=== PATIENT | male | born 1970 | race Caucasian/White ===

== ENCOUNTER 2019-06-24 18:16 | Inpatient (IN) | payer OTHER ==
[~2019-06-24] VITALS: Ht 172.7 cm; Wt 79.8 kg
[~2019-06-24 18:16] MED LIST: NOHOMEMEDICATIONS
[2019-06-24 18:24] VITALS: BP 172/122
--- NOTE | 2019-06-24 18:28 | NUR ---
DR. STAPLETON NOTED OF PT HR AND B/P.
[2019-06-24 19:13] LABS: ABSOLUTE EOSINOPHILS 0.1 thou/uL (0.0-0.7); ABSOLUTE LYMPHOCYTES 1.2 thou/uL (0.8-5.3); ABSOLUTE MONOCYTES 0.4 thou/uL (0.0-1.2); ABSOLUTE NEUTROPHILS 2.6 thou/uL (1.6-8.1); BASOPHILS 0.9 %; EOSINOPHILS 1.8 %; HEMATOCRIT 43.2 % (42.0-52.0); HEMOGLOBIN 14.8 gm/dL (14.0-18.0); LYMPHOCYTES 27.9 %; MCH 32.3 pg (26.0-34.0); MCHC 34.2 g/dL (28.0-37.0); MCV 94.4 fL (80.0-100.0); MONOCYTES 9.2 %; NUCLEATED RBCS 0 /100WBC; PLATELET COUNT* 159 thou/uL (150-400); POLYS 60.2 %; RBC 4.57 mil/uL (4.50-6.00); RDW-CV 14.1 % (10.5-14.5); WBC 4.3 thou/uL (4.0-11.0)
[2019-06-24 19:18] LABS: URINE BLOOD 3+ (Negative); URINE CLARITY CLEAR; URINE COLOR YELLOW; URINE GLUCOSE-RANDOM 3+ (Negative); URINE KETONES 1+ (Negative); URINE LEUKOCYTES-REFLEX NEGATIVE (Negative); URINE NITRITE-REFLEX NEGATIVE (Negative); URINE PROTEIN 2+ (Negative)
[2019-06-24 19:27] LABS: ANION GAP 12 mmol/L (7-16); BUN 10 mg/dL (7-18); CALCIUM 8.3 mg/dL (8.5-10.1); CHLORIDE 92 mmol/L (98-107); CO2 24 mmol/L (21-32); CREATININE 0.9 mg/dL (0.6-1.3); GLUCOSE 438 mg/dL (70-99); POTASSIUM 3.1 mmol/L (3.5-5.1); SODIUM 128 mmol/L (136-145)
[2019-06-24 19:29] LABS: BACTERIA-REFLEX 1-9 Few /HPF (None Seen); HYALINE CASTS 0-3 Few /LPF (None Seen); ICTOTEST (BILI CONFIRMATORY) Negative (Negative); SQUAMOUS 4-10 Moderate /LPF (0-3); URINE BILIRUBIN 2+ (Negative); URINE RBC 3-10 Few /HPF (0-2); URINE WBC-REFLEX 0-5 Rare /HPF (0-5)
[2019-06-24 19:30] LABS: CRYSTALS None Seen /LPF (None Seen)
[2019-06-24 19:40] LABS: AMP/METHAMP Negative (Negative); BARBITURATES Negative (Negative); BENZODIAZEPINES Negative (Negative); COCAINE Negative (Negative); METHADONE Negative (Negative); OPIATES Negative (Negative); PCP Negative (Negative); THC Negative (Negative)
[2019-06-24 19:41] LABS: ALBUMIN 2.6 g/dL (3.4-5.0); ALKALINE PHOSPHATASE 245 U/L (46-116); LIPASE 96 U/L (73-393); NT-PRO BRAIN NAT PEPTIDE 538 pg/mL (<300); SGOT 147 U/L (15-37); SGPT 87 U/L (30-65); TOTAL BILIRUBIN 2.5 mg/dL (<0.1-1.0); TOTAL PROTEIN 7.1 g/dL (6.4-8.2); TROPONIN-I LEVEL <0.06 ng/mL (<0.06)
[2019-06-24 22:30] VITALS: BP 155/102
[2019-06-24 22:45] VITALS: BP 150/109
[2019-06-24 23:55] LABS: PROTIME 10.7 Seconds (9.20-11.50)
[2019-06-24 23:57] LABS: PHOSPHORUS* 1.9 mg/dL (2.5-4.9)
[2019-06-24 23:58] LABS: CALCIUM 8.2 mg/dL (8.5-10.1); CREATININE 0.9 mg/dL (0.6-1.3); MAGNESIUM 1.3 mg/dL (1.8-2.4)
[2019-06-24 23:59] LABS: POTASSIUM 2.9 mmol/L (3.5-5.1)
[2019-06-25 04:00] VITALS: BP 161/98
--- NOTE | 2019-06-25 04:01 | NUR ---
ASSUMED CARE OF PT AT 2230. PT IS ALERT AND ORIENTED. VSS. PERRLA. PT IS UP AD MIRTA. PT IS ON ROOM AIR. BLOOD SUGAR WAS 75 UPON ARRIVAL TO THE FLOOR. PT IS IN SINUS RYTHM ON THE TELEMETRY. PT IS RESTING COMFORTABLY IN BED. RESPIRATIONS ARE EVEN AND NONLABORED. WILL CONTINUE TO MONITOR PT.
[2019-06-25 08:00] VITALS: BP 149/101
[2019-06-25 09:50] LABS: CALCIUM 8.6 mg/dL (8.5-10.1); POTASSIUM 3.8 mmol/L (3.5-5.1)
--- NOTE | 2019-06-25 14:39 | NUR ---
assumed pt care. report received from nurse. pt is aox4 , ciwa 1. mild anxity noticed early this am. vss. accucheck monitored see chart. iv fluid infusing as ordered. magnesium replaced. pt took a shower. pt found to be unsteady on legs, and stumbling. so fall precaution in place. pt has no complaint. has good appetite. oral ativan given as ordered. pt is lethargic and falls sleep at repeated intervals. will continue to monitor
[2019-06-25 16:49] VITALS: BP 146/96
--- NOTE | 2019-06-25 17:24 | NUR ---
SW met with pt dtr to complete initial assessment while pt was sleeping soundly. Pt lives at home with pt dtr. Pt dtr explained that she plans to assist pt in trying to enroll in insurance and find PCP and help pt with needed follow ups, etc. SW to continue to follow to assist with safe dc planning.
[2019-06-25 19:50] VITALS: BP 150/100
--- NOTE | 2019-06-25 20:08 | EKG ---
[place] [address] ELECTROCARDIOGRAM REPORT Name: GREGALVA III Room: [address] ADM IN [facility].#: [id number] Admission: 06/24/19 Attend Phys: Kimmie Tan MD Discharge: Date of : 74 Report #: [id number] THIS REPORT FOR: //name// [facility] ED Test Date: 2019-06-24 Test Time: 18:34:33 Pat Name: ALVA GARZA Department: Room: [facility] Gender: [employer] Dec[employer]ator: : 1970 Requested By: Beni Whitten Order Number: [id number] MD: Jack Lopez Measurements Intervals [place] Rate: 102 P: 69 HI: 153 QRS: -8 QRSD: 86 T: 40 QT: 360 QTc: 469 Interpretive Statements Sinus tachycardia Abnormal R-wave progression, late transition Baseline wander in lead(s) V5 Compared to ECG 12/17/2011 12:42:12 Sinus rhythm no longer present Electronically Signed On 06-25-2019 20:08:32 CDT by Jack Lopez [email or web address] <ELECTRONICALLY SIGNED> By: Bella Lopez MD, [facility] 06/25/192007 33 33 Bella Lopez MD, [facility] /EPI
[2019-06-26] VITALS (7 sets, daily range): BP systolic 144–178; BP diastolic 87–122
[2019-06-26 03:07] LABS: HEPATITIS B SURFACE AG Negative (Negative)
[2019-06-26 05:10] LABS: GLYCOHEMOGLOBIN (HGB A1C) 8.7 % (4.8-5.6)
--- NOTE | 2019-06-26 08:45 | NUR ---
ASSUMED CARE AFTER REPORT APPROX 0730. OX4, SLEEPY BUT RESPONDS TO VERBAL CUE. 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 O2 SATS >92% RA. CIWA 5, ATIVAN GIVEN PER JAN. PT STATES "I'M JUST NOT SURE WHAT'S GOING TO HAPPEN HERE." REVIEWED PLAN OF CARE. PATIENT STATES, "OK, THANKS." CALL LIGHT IN REACH. HOURLY ROUNDING FOR SAFETY AND PATIENT NEEDS.
[2019-06-26 14:36] LABS: HEMATOCRIT 34.6 % (42.0-52.0); MCH 32.9 pg (26.0-34.0); MCHC 34.4 g/dL (28.0-37.0); MCV 95.6 fL (80.0-100.0); MPV 10.3 fl. (7.2-11.1); RBC 3.62 mil/uL (4.50-6.00); RDW-CV 14.2 % (10.5-14.5); WBC 6.1 thou/uL (4.0-11.0)
[2019-06-26 14:38] LABS: HEMOGLOBIN 11.9 gm/dL (14.0-18.0)
[2019-06-26 14:46] LABS: CALCIUM 8.9 mg/dL (8.5-10.1); CREATININE 0.9 mg/dL (0.6-1.3); POTASSIUM 3.6 mmol/L (3.5-5.1)
[2019-06-27] VITALS (7 sets, daily range): BP systolic 144–175; BP diastolic 88–113
[2019-06-27 05:32] LABS: MCH 32.1 pg (26.0-34.0); MCHC 33.3 g/dL (28.0-37.0); MCV 96.5 fL (80.0-100.0); MPV 10.8 fl. (7.2-11.1); RBC 3.74 mil/uL (4.50-6.00); RDW-CV 14.5 % (10.5-14.5); WBC 3.8 thou/uL (4.0-11.0)
[2019-06-27 05:43] LABS: ALBUMIN 2.2 g/dL (3.4-5.0); CALCIUM 8.6 mg/dL (8.5-10.1); CREATININE 0.8 mg/dL (0.6-1.3); MAGNESIUM 1.3 mg/dL (1.8-2.4); POTASSIUM 3.4 mmol/L (3.5-5.1); TOTAL BILIRUBIN 0.4 mg/dL (<0.1-1.0); TOTAL PROTEIN 6.2 g/dL (6.4-8.2)
--- NOTE | 2019-06-27 08:30 | NUR ---
ASSUMED CARE AFTER REPORT APPROX 0730. PATIENT SLEEPING AT FIRST ENCOUNTER. RESPONDS TO VERBAL CUE. VS OBTAINED AND ASSESSMENT COMPLETE. 0X4, AWAKENS SLOW BUT MORE ALERT TODAY ONCE AWAKE. 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 O2 SAT >92% RA. GOAL SET TO BE UP IN CHAIR TODAY, PATIENT AGREES. PREFERS TO WALK TO BR BUT DOESN'T WANT TO BOTHER STAFF. PATIENT STATES "THAT'S WHY I DON'T WANT TO DRINK TOO MUCH WATER." EDUCATION PROVIDED R/T FLUID INTAKE AND HEALTH PROMOTION. CALL LIGHT WITHIN REACH. HOURLY ROUNDING FOR SAFETY AND PATIENT NEEDS.
--- NOTE | 2019-06-27 09:15 | NUR ---
PATIENT EATING BREAKFAST, C/O SHAKINESS THAT IS DIFFERENT FROM ANXIETY/TREMOR. BLOOD GLUCOSE CHECKED AND IS 76. APPLE JUICE GIVEN AND ENCOURAGED TO DRINK. UPON REASSESSMENT, PATIENT ASLEEP. RESPONDING TO TO VERBAL CUE, PATIENT STATES, "IT'S BETTER NOW, EVEN ANXIETY IS ABOUT A 1 OUT OF 10." CALL LIGHT IN REACH.
--- NOTE | 2019-06-27 11:15 | NUR ---
PATIENT UP TO BATHROOM. GAIT MORE STEADY TODAY. CONTINUES TO BE FALL RISK UNSTEADY AT FIRST. UP TO CHAIR. CALL LIGHT IN REACH.
--- NOTE | 2019-06-27 13:38 | NUR ---
PATIENT STATES "I AM SEEING SOME PURPLE AND CRUZ SHAPES OVER NEAR THE WINDOW. WINDOW SHADES CLOSED AT PRESENT. PATIENT ALSO REPORTS SEEING THESE COLORFUL SHAPES EARLY WHEN NURSE WAS IN THE ROOM. SEE CIWA CHARTING. CALL LIGHT IN REACH. HOURLY ROUNDING FOR SAFETY AND PATIENT NEEDS.
[2019-06-28] VITALS: BP 150/104
[2019-06-28 04:00] VITALS: BP 170/110
[2019-06-28 04:53] LABS: HEMATOCRIT 35.5 % (42.0-52.0); HEMOGLOBIN 11.8 gm/dL (14.0-18.0); MCH 32.4 pg (26.0-34.0); MCHC 33.3 g/dL (28.0-37.0); MCV 97.1 fL (80.0-100.0); MPV 10.2 fl. (7.2-11.1); RBC 3.65 mil/uL (4.50-6.00); RDW-CV 14.5 % (10.5-14.5); WBC 6.3 thou/uL (4.0-11.0)
[2019-06-28 05:07] LABS: ALBUMIN 2.3 g/dL (3.4-5.0); CALCIUM 8.7 mg/dL (8.5-10.1); CREATININE 0.8 mg/dL (0.6-1.3); MAGNESIUM 1.4 mg/dL (1.8-2.4); POTASSIUM 3.9 mmol/L (3.5-5.1); TOTAL BILIRUBIN 0.3 mg/dL (<0.1-1.0); TOTAL PROTEIN 6.4 g/dL (6.4-8.2)
--- NOTE | 2019-06-28 07:08 | NUR ---
BP ELEVATED THOUGHT NIGHT, MEDICATIONS GIVEN,PRESSURE REMAINED ELEVATED. SEE MAR. SEE CHARTING. HOURLY ROUNDING FOR SAFETY.
[2019-06-28 08:00] VITALS: BP 131/94
[2019-06-28 13:19] VITALS: BP 148/94
--- NOTE | 2019-06-28 18:22 | NUR ---
ASSUMED PT CARE REPORT RECEIVED FROM NURSE. PT IS AOX4. ON RA. UP AD MIRTA. CIWA 1. NO COMPLAINT. ACCUCHECH. CALL LIGHT AT REACH
[2019-06-28 19:28] VITALS: BP 126/69
[2019-06-28 19:40] VITALS: BP 142/91
[2019-06-29] VITALS: BP 146/93
[2019-06-29 04:30] VITALS: BP 151/103
--- NOTE | 2019-06-29 05:28 | NUR ---
PT CARE ASSUMED AT 1930. SAT [facility] IN RA. ALERT AND ORIENTED X4. CALL LIGHT WITHIN REACH AND BED IN LOW POSITION. PT STATES HE SEE BLUE FLASHES OF LIGHT AT TIMES. DENIES PAIN AND SOB. HOURLY ROUNDING DONE FOR PT SAFETY.
[2019-06-29 08:00] VITALS: BP 154/95
[2019-06-29] MEDS ORDERED: GLUCOPHAGE850 MG PO (11:28)
[2019-06-29] MEDS ORDERED: NORVASC5 MG PO (11:28)
[2019-06-29] MEDS ORDERED: LISINOPRIL40 MG PO (11:28)
[2019-06-29] MEDS ORDERED: TOPROL XL50 MG PO (11:28)
[2019-06-29] MEDS ORDERED: GLIPIZIDE 10 MG10 MG PO (11:29)
[2019-06-29] MEDS ORDERED: PIOGLITAZONE15 MG PO (11:29)
[2019-06-29 12:00] VITALS: BP 154/95
[2019-06-29 12:23] VITALS: BP 154/95
--- NOTE | 2019-06-29 12:28 | NUR ---
CM spoke with , Pt does not have insurance. CM costed Pt's meds, CM will cover Pt's RX for Tamsulosin, instructed Pt to car pick up driver med at [facility] N7. CM instructed Pt to fill his Prasugrel Rx at [facility], Good RX coupon provided. CM instructed Pt to fill all of his other scripts at [facility], CM provided Pt with the [facility] $4 list and highlighted all of the meds that Pt will dc with. CM charted in Pt's dc summary. CM informed Pt that he can get a glucometer at [facility] also. CM faxed script to [facility], along with goodrx coupon. Pt voiced understanding. Updated nurse. Pt to dc to home today.
--- NOTE | 2019-06-29 14:24 | NUR ---
ASSUMED PT CARE REPORT RECEIVED FROM NURSE. PT IS AOX4, [facility] PT DISCHARGE ORDERED. DISCHARGE INSTRUCTIONS GIVEN TO PATIENT. PT LEFT FLOOR ACCOMPANIED BY VOLUNTEER ON WHEELCHAIR.
== END 2019-06-29 13:32 | disposition home or self-care (01) | DRG 641 ==
LOC: M.ERS 18:16 → M.2W 21:51 → M.TBA-ER 21:51 → M.2W 22:11
PROVIDERS: Emergency Medicine; ADMIT Internal Medicine
DX: E87.1 Hypo-osmolality and hyponatremia (principal); E51.2 Wernicke's encephalopathy; I10 Essential (primary) hypertension; E87.6 Hypokalemia; E83.42 Hypomagnesemia; E83.39 Other disorders of phosphorus metabolism; E11.65 Type 2 diabetes mellitus with hyperglycemia; F17.210 Nicotine dependence, cigarettes, uncomplicated; E11.42 Type 2 diabetes mellitus with diabetic polyneuropathy; Y90.1 Blood alcohol level of 20-39 mg/100 ml; F10.229 Alcohol dependence with intoxication, unspecified; R74.0 Nonspecific elevation of levels of transaminase and lactic acid dehydrogenase [LDH]; Z79.84 Long term (current) use of oral hypoglycemic drugs; Z81.1 Family history of alcohol abuse and dependence

== ENCOUNTER 2021-01-07 20:16 | Emergency (ER) | payer OTHER ==
[~2021-01-07] VITALS: Ht 175.3 cm; Wt 72.6 kg
[~2021-01-07 20:16] MED LIST changes: +GLIPIZIDE 10 MG10 MG PO; +GLUCOPHAGE850 MG PO; +LISINOPRIL40 MG PO; +NORVASC5 MG PO; +PIOGLITAZONE15 MG PO; +TOPROL XL50 MG PO
[2021-01-07 21:04] LABS: URINE BILIRUBIN NEGATIVE (Negative); URINE BLOOD 2+ (Negative); URINE CLARITY CLEAR; URINE COLOR YELLOW; URINE GLUCOSE-RANDOM TRACE (Negative); URINE KETONES NEGATIVE (Negative); URINE LEUKOCYTES-REFLEX NEGATIVE (Negative); URINE NITRITE-REFLEX NEGATIVE (Negative); URINE PROTEIN 2+ (Negative); URINE UROBILINOGEN 0.2 E.U./dl (0.2-1.0)
[2021-01-07 21:12] LABS: AMP/METHAMP Negative (Negative); BARBITURATES Negative (Negative); BENZODIAZEPINES Negative (Negative); COCAINE Negative (Negative); METHADONE Negative (Negative); OPIATES Negative (Negative); PCP Negative (Negative); THC Negative (Negative)
[2021-01-07 21:15] LABS: BACTERIA-REFLEX >30 Many /HPF (None Seen); COARSE GRANULAR CASTS 0-3 Few /LPF (None Seen); CRYSTALS None Seen /LPF (None Seen); FINE GRANULAR CASTS 0-3 Few /LPF (None Seen); HYALINE CASTS 0-3 Few /LPF (None Seen); MUCUS 4-6 Moderate strn/LPF (None Seen); SQUAMOUS 0-3 Few /LPF (0-3); URINE WBC-REFLEX 0-5 Rare /HPF (0-5)
[2021-01-07 21:20] LABS: ABSOLUTE BASOPHILS 0.2 thou/uL (0.0-0.2); ABSOLUTE EOSINOPHILS 0.2 thou/uL (0.0-0.7); ABSOLUTE LYMPHOCYTES 2.1 thou/uL (0.8-5.3); ABSOLUTE MONOCYTES 0.8 thou/uL (0.0-1.2); ABSOLUTE NEUTROPHILS 4.8 thou/uL (1.6-8.1); BASOPHILS 2.2 %; EOSINOPHILS 1.9 %; HEMATOCRIT 39.6 % (42.0-52.0); HEMOGLOBIN 13.4 gm/dL (14.0-18.0); LYMPHOCYTES 26.1 %; MCH 32.9 pg (26.0-34.0); MCHC 33.9 g/dL (28.0-37.0); MCV 97.1 fL (80.0-100.0); MONOCYTES 9.7 %; MPV 8.9 fl. (7.2-11.1); NUCLEATED RBCS 0 /100WBC; PLATELET COUNT* 172 thou/uL (150-400); POLYS 60.1 %; RBC 4.08 mil/uL (4.50-6.00); RDW-CV 12.9 % (10.5-14.5)
[2021-01-07 21:25] LABS: CALCIUM 8.6 mg/dL (8.5-10.1); CREATININE 1.2 mg/dL (0.6-1.3); POTASSIUM 3.7 mmol/L (3.5-5.1)
[2021-01-07 21:27] LABS: INR 0.9; PROTIME 9.7 Seconds (9.20-11.50)
[2021-01-07 21:36] LABS: ALBUMIN 3.6 g/dL (3.4-5.0); TOTAL BILIRUBIN 0.4 mg/dL (<0.1-1.0); TOTAL PROTEIN 7.9 g/dL (6.4-8.2)
[2021-01-07] MEDS ORDERED: MOBIC15 MG PO (22:04)
[2021-01-07 22:38] VITALS: BP 127/85
--- NOTE | 2021-01-08 13:43 | EKG ---
[place] [address] ELECTROCARDIOGRAM REPORT Name: GREGALVA III Room: 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1970 Requested By: Doris Cerda Order Number: [id number] MD: Pelon Saha Measurements Intervals [place] Rate: 93 P: 51 OK: 153 QRS: 0 QRSD: 102 T: 26 QT: 368 QTc: 458 Interpretive Statements Sinus rhythm ST elev, probable normal early repol pattern Baseline wander in lead(s) V2 Compared to ECG 06/24/2019 18:34:33 ST (T wave) deviation now present Sinus tachycardia no longer present Electronically Signed On 01-08-2021 13:42:59 CAUSTIC LOADER by Pelon Saha [email or web address] <ELECTRONICALLY SIGNED> By: Pelon Saha MD, FAC 01/08/21 1342 28 28 Pelon Saha MD, FAC /EPI
== END 2021-01-07 22:40 | disposition home or self-care (01) ==
LOC: M.ERS 20:16
PROVIDERS: Personal Emergency Response Attendant
DX: F10.129 Alcohol abuse with intoxication, unspecified (principal); M62.838 Other muscle spasm; M54.10 Radiculopathy, site unspecified; I10 Essential (primary) hypertension; E11.9 Type 2 diabetes mellitus without complications; Z79.899 Other long term (current) drug therapy; Y90.9 Presence of alcohol in blood, level not specified

== ENCOUNTER 2021-12-23 09:15 | Emergency (ER) | payer OTHER ==
[~2021-12-23] VITALS: Ht 172.7 cm; Wt 83.9 kg
[~2021-12-23 09:15] MED LIST changes: +MOBIC15 MG PO
[2021-12-23 11:48] VITALS: BP 194/120
== END 2021-12-23 11:50 | disposition home or self-care (01) ==
LOC: M.ERS 09:15
DX: M79.602 Pain in left arm (principal); I12.0 Hypertensive chronic kidney disease with stage 5 chronic kidney disease or end stage renal disease; E11.22 Type 2 diabetes mellitus with diabetic chronic kidney disease; N18.6 End stage renal disease